=== PATIENT | female | born 1950 | race African-American/Black ===

== ENCOUNTER 2017-04-20 21:10 | Emergency (ER) | payer MEDICAID ==
[~2017-04-20] VITALS: Ht 157.5 cm; Wt 68.0 kg
[~2017-04-20 21:10] MED LIST: ANORO INH; CLON0.2T PO; FURO-152 PO; LACT10SO6 PO; ZOLP10TA6 PO
[2017-04-20 22:48] LABS: BASOPHILS % 0.7 % (0.0-2.0); EOSINOPHILS % 2.4 % (0.0-5.0); HEMATOCRIT. 37.4 % (36.0-48.0); HEMOGLOBIN. 12.4 g/dL (12.0-16.0); LYMPHOCYTES % 34.4 % (20.0-50.0); MEAN CORPUSCULAR HEMOGLOBIN 30.7 pg (28.0-32.0); MEAN CORPUSCULAR VOLUME 92.8 fL (81.0-99.0); MEAN PLATELET VOLUME 9.3 fl (7.4-10.4); MONOCYTES % 9.8 % (2.0-8.0); NEUTROPHILS % 52.7 % (40.0-76.0); PLATELET 118 x1000/uL (130-400); RED BLOOD CELL COUNT 4.03 mill/uL (4.2-5.4); RED CELL DISTRIBUTION WIDTH 15.1 % (11.6-14.6)
[2017-04-20 22:50] LABS: CHLORIDE 107 mEq/L (98-107)
[2017-04-20 22:52] LABS: INR 1.5; PROTHROMBIN TIME 15.4 sec
[2017-04-20 22:54] LABS: AMMONIA 23 uMol/L (<32)
[2017-04-20 22:57] LABS: CARBON DIOXIDE 28 mEq/L (21-32); ETHANOL BLOOD < 10 mg/dL
[2017-04-20 23:06] LABS: CREATINE KINASE 261 IU/L (26-192)
[2017-04-21 07:30] VITALS: BP 112/70
== END 2017-04-21 09:27 | disposition home or self-care (01) ==
LOC: ER 21:49
DX: T42.6X1A Poisoning by other antiepileptic and sedative-hypnotic drugs, accidental (unintentional), initial encounter (principal); G92 Toxic encephalopathy; K74.60 Unspecified cirrhosis of liver; N28.9 Disorder of kidney and ureter, unspecified; Y92.018 Other place in single-family (private) house as the place of occurrence of the external cause
CPT/HCPCS: 36415; 80053; 80307; 80329; 82140; 82550; 82962; 84443; 85025; 85610; 93005; 99285; G0482; Z7610

== ENCOUNTER 2019-08-19 15:33 | Emergency (ER) | payer MEDICARE, MEDICAID ==
[~2019-08-19] VITALS: Ht 165.1 cm; Wt 73.0 kg
[2019-08-19 17:10] LABS: BASOPHILS % 1.3 % (0.0-2.0); EOSINOPHILS % 0.6 % (0.0-5.0); HEMATOCRIT. 38.1 % (36.0-48.0); HEMOGLOBIN. 12.1 g/dL (12.0-16.0); LYMPHOCYTES % 26.5 % (20.0-50.0); MEAN CORPUSCULAR HEMOGLOBIN 25.4 pg (28.0-32.0); MEAN CORPUSCULAR VOLUME 80.1 fL (81.0-99.0); MEAN PLATELET VOLUME 9.2 fl (7.4-10.4); MONOCYTES % 7.5 % (2.0-8.0); NEUTROPHILS % 64.1 % (40.0-76.0); PLATELET 123 x1000/uL (130-400); RED BLOOD CELL COUNT 4.76 mill/uL (4.2-5.4); RED CELL DISTRIBUTION WIDTH 17.2 % (11.6-14.6)
[2019-08-19 17:14] LABS: CHLORIDE 107 mEq/L (98-107)
[2019-08-19 17:28] LABS: CLARITY URINE CLEAR (CLEAR); COLOR URINE YELLOW (YELLOW); KETONES URINE NEGATIVE (NEGATIVE); LEUKOCYTE ESTERASE URINE TRACE (NEGATIVE); NITRITE URINE NEGATIVE (NEGATIVE); OCCULT BLOOD URINE NEGATIVE (NEGATIVE); PH URINE 6.5 (4.5-8.0); PROTEIN URINE NEGATIVE (NEGATIVE); SPECIFIC GRAVITY URINE 1.033 (1.005-1.030)
[2019-08-19] MEDS: ACETAMINOPHEN 500MG TABLET PO ONE ×2 (18:19→18:20)
[2019-08-19] MEDS ORDERED: HYDROCODONE/ACETAMINOPHEN 5/325MG TABLET PO NR (18:45)
[2019-08-19] MEDS ORDERED: AMLODIPINE 5MG TABLET PO ONE (18:45)
[2019-08-19] MEDS ORDERED: CEFTRIAXONE 1 G PREMIX 50 ML IV NR (21:15)
[2019-08-19] MEDS ORDERED: FLUCONAZOLE 100MG TABLET PO ONE (21:30)
[2019-08-19] MEDS ORDERED: FLUCONAZOLE 150MG TABLET PO NR (22:00)
[2019-08-19] MEDS ORDERED: IOHEXOL-350 100 ML BOTTLE ONE (22:50)
[2019-08-19 23:00] VITALS: BP 145/65
== END 2019-08-19 23:00 | disposition home or self-care (01) ==
LOC: ER 15:55
DX: M54.89 Other dorsalgia (principal); M54.2 Cervicalgia; N39.0 Urinary tract infection, site not specified; V43.32XA Unspecified car occupant injured in collision with other type car in nontraffic accident, initial encounter; Y93.89 Activity, other specified; Y92.410 Unspecified street and highway as the place of occurrence of the external cause; E11.9 Type 2 diabetes mellitus without complications; I10 Essential (primary) hypertension
CPT/HCPCS: 36415; 71045; 71275; 80053; 81003; 83690; 83880; 84484; 85025; 85379; 93005; 96365; 99284; J0696; Q9967

== ENCOUNTER 2020-12-15 20:33 | Inpatient (IN) | payer MEDICARE, MEDICAID ==
[~2020-12-15] VITALS: Ht 157.5 cm; Wt 59.6 kg
[2020-12-15] MEDS ORDERED: ONDANSETRON HCL 4MG/2ML INJ IV STA (20:59)
[2020-12-15] MEDS ORDERED: SODIUM CHLORIDE 0.9% 1,000 ML IV ONE (21:00)
[2020-12-15] MEDS ORDERED: MORPHINE SULFATE 4 MG/ML CPJ (NOT FOR IM USE) IV ONE (21:30)
[2020-12-15] MEDS ORDERED: DEXT 5%/0.9% NACL 1,000 ML IV ONE (21:45)
[2020-12-15 23:07] LABS: BASOPHILS % 0.3 % (0.0-2.0); EOSINOPHILS % 0.2 % (0.0-5.0); HEMATOCRIT. 28.5 % (36.0-48.0); HEMOGLOBIN. 8.3 g/dL (12.0-16.0); LYMPHOCYTES % 22.5 % (20.0-50.0); MEAN CORPUSCULAR VOLUME 65.2 fL (81.0-99.0); MONOCYTES % 6.6 % (2.0-8.0); NEUTROPHILS % 70.4 % (40.0-76.0); RED BLOOD CELL COUNT 4.37 mill/uL (4.2-5.4)
[2020-12-15 23:14] LABS: CHLORIDE 104 mEq/L (98-107)
[2020-12-15 23:20] LABS: ETHANOL BLOOD < 10 mg/dL
[2020-12-15 23:21] LABS: BETA HYDROXYBUTYRATE 0.5 mMol/L (0.0-0.3)
[2020-12-15 23:28] LABS: PLATELET ESTIMATE SLIGHTLY DECREASED
[2020-12-15 23:29] LABS: MEAN PLATELET VOLUME 8.5 fl (7.4-10.4); PLATELET 116 x1000/uL (130-400)
[2020-12-15 23:30] LABS: CLARITY URINE CLOUDY (CLEAR); COLOR URINE DARK YELLOW (YELLOW); KETONES URINE 1+ (NEGATIVE); LEUKOCYTE ESTERASE URINE 3+ (NEGATIVE); NITRITE URINE POSITIVE (NEGATIVE); OCCULT BLOOD URINE NEGATIVE (NEGATIVE); PH URINE 6.5 (4.5-8.0); PROTEIN URINE 2+ (NEGATIVE); SPECIFIC GRAVITY URINE 1.019 (1.005-1.030)
[2020-12-15 23:40] LABS: PHENCYCLIDINE URINE SCREEN NEGATIVE (NEGATIVE)
[2020-12-15 23:41] LABS: *AMPHETAMINES SCREEN URINE NEGATIVE (NEGATIVE); *BARBITURATES SCREEN URINE NEGATIVE (NEGATIVE); *BENZODIAZEPINES SCREEN URINE NEGATIVE (NEGATIVE); *COCAINE SCREEN URINE PRESUMTIVE POSITIVE (NEGATIVE); CANNABINOID URINE SCREEN NEGATIVE (NEGATIVE); METHADONE URINE SCREEN NEGATIVE (NEGATIVE)
[2020-12-15 23:42] LABS: OPIATES URINE SCREEN NEGATIVE (NEGATIVE)
[2020-12-16] MEDS ORDERED: IOHEXOL-300 100 ML BOTTLE ONE (00:22)
[2020-12-16 00:44] LABS: INR 1.2; PROTHROMBIN TIME 13.1 sec (9.6-11.0)
[2020-12-16] MEDS ORDERED: KCL 20MEQ/100ML PREMIX 100 ML IV ONE (01:00)
[2020-12-16] MEDS ORDERED: CEFTRIAXONE 1 G PREMIX 50 ML IV ONE (01:00)
[2020-12-16] MEDS ORDERED: MORPHINE SULFATE 4 MG/ML CPJ (NOT FOR IM USE) IV ONE (01:00)
[2020-12-16 03:16] VITALS: BP 147/91
[2020-12-16 04:00] VITALS: BP 147/91
[2020-12-16] MEDS ORDERED: POTA8CAP20 MT (04:54)
[2020-12-16] MEDS ORDERED: METF-874 MT (04:54)
[2020-12-16] MEDS ORDERED: DILT30TA38 PO (04:54)
[2020-12-16] MEDS ORDERED: ONDANSETRON HCL 4MG/2ML INJ IV PRN (05:00)
[2020-12-16 06:48] LABS: BASOPHILS % 0.4 % (0.0-2.0); EOSINOPHILS % 0.4 % (0.0-5.0); HEMATOCRIT. 29.2 % (36.0-48.0); HEMOGLOBIN. 8.5 g/dL (12.0-16.0); LYMPHOCYTES % 22.2 % (20.0-50.0); MEAN CORPUSCULAR HEMOGLOBIN 19.4 pg (28.0-32.0); MEAN CORPUSCULAR VOLUME 66.8 fL (81.0-99.0); MONOCYTES % 7.9 % (2.0-8.0); NEUTROPHILS % 69.1 % (40.0-76.0); RED BLOOD CELL COUNT 4.36 mill/uL (4.2-5.4); RED CELL DISTRIBUTION WIDTH 21.7 % (11.6-14.6)
[2020-12-16 07:07] LABS: CHLORIDE 105 mEq/L (98-107)
[2020-12-16 08:00] VITALS: BP 97/53
[2020-12-16] MEDS ORDERED: DEXTROSE 50% WATER 50ML SYRINGE IV PRN (09:30)
[2020-12-16] MEDS ORDERED: POTASSIUM CHLORIDE INJ 40 MEQ in DEXT 5% WATER 250 ML IV SCH (11:00)
[2020-12-16] MEDS: ACETAMINOPHEN 325MG TABLET PO PRN (11:15)
[2020-12-16] MEDS: BLOOD SUGAR DIAGNOSTIC STRIP TEST SCH ×3 (11:43→20:44)
[2020-12-16 12:00] VITALS: BP 165/92
[2020-12-16] MEDS: INSULIN LISPRO 100 UNITS/ML SUBCUT SCH ×3 (12:39→20:48)
[2020-12-16] MEDS: CLONIDINE 0.2MG TABLET PO PRN (12:44)
[2020-12-16 12:48] LABS: MEAN PLATELET VOLUME 8.7 fl (7.4-10.4); PLATELET 114 x1000/uL (130-400)
[2020-12-16 15:02] LABS: FOLIC ACID (FOLATE) SERUM 19.6 ng/mL (>5.38)
[2020-12-16] MEDS: MEGESTROL ACETATE 400 MG/10 ML UDC PO SCH (15:52)
[2020-12-16] MEDS: SODIUM CHLORIDE 0.9% 1,000 ML IV SCH (15:52)
[2020-12-16 18:18] LABS: HEPATITIS B SURFACE ANTIGEN NEGATIVE
[2020-12-16 18:48] LABS: HEPATITIS A AB IGM NEGATIVE (NEGATIVE)
[2020-12-16 20:00] VITALS: BP 112/61
[2020-12-17] VITALS: BP 111/53
[2020-12-17] MEDS: ZOLPIDEM TARTRATE 5MG TABLET PO PRN ×2 (00:07→21:32)
[2020-12-17] MEDS: CEFTRIAXONE 1,000 MG in DEXTROSE 5% WATER 50 ML IV SCH (00:10)
[2020-12-17 04:00] VITALS: BP 107/58
[2020-12-17 06:47] LABS: TOTAL IRON BINDING CAPACITY 369 ug/dL (250-450)
[2020-12-17] MEDS: BLOOD SUGAR DIAGNOSTIC STRIP TEST SCH ×4 (07:28→20:35)
[2020-12-17 07:45] VITALS: BP 105/55
[2020-12-17] MEDS: INSULIN LISPRO 100 UNITS/ML SUBCUT SCH ×4 (07:50→20:35)
[2020-12-17] MEDS: SODIUM CHLORIDE 0.9% 1,000 ML IV SCH (08:10)
[2020-12-17] MEDS: MEGESTROL ACETATE 400 MG/10 ML UDC PO SCH (09:56)
[2020-12-17 12:00] VITALS: BP 107/59
[2020-12-17 15:45] VITALS: BP 113/57
[2020-12-17 20:00] VITALS: BP 161/69
[2020-12-17] MEDS: CLONIDINE 0.2MG TABLET PO PRN (21:32)
[2020-12-18] VITALS (10 sets, daily range): BP systolic 84–145; BP diastolic 42–73
[2020-12-18] MEDS: SODIUM CHLORIDE 0.9% 1,000 ML IV SCH ×2 (00:29→18:50)
[2020-12-18] MEDS: CEFTRIAXONE 1,000 MG in DEXTROSE 5% WATER 50 ML IV SCH (00:29)
[2020-12-18 06:46] LABS: BASOPHILS % 0.9 % (0.0-2.0); EOSINOPHILS % 1.1 % (0.0-5.0); HEMATOCRIT. 22.8 % (36.0-48.0); MEAN CORPUSCULAR HEMOGLOBIN 19.6 pg (28.0-32.0); MEAN CORPUSCULAR VOLUME 66.7 fL (81.0-99.0); MONOCYTES % 9.5 % (2.0-8.0); NEUTROPHILS % 44.5 % (40.0-76.0); RED BLOOD CELL COUNT 3.42 mill/uL (4.2-5.4); RED CELL DISTRIBUTION WIDTH 22.1 % (11.6-14.6)
[2020-12-18] MEDS: BLOOD SUGAR DIAGNOSTIC STRIP TEST SCH ×4 (07:20→21:00)
[2020-12-18] MEDS: INSULIN LISPRO 100 UNITS/ML SUBCUT SCH ×4 (07:50→21:00)
[2020-12-18 08:23] LABS: CHLORIDE 111 mEq/L (98-107)
[2020-12-18 08:27] LABS: HEMOGLOBIN. 6.7 g/dL (12.0-16.0)
[2020-12-18] MEDS: MEGESTROL ACETATE 400 MG/10 ML UDC PO SCH (08:39)
[2020-12-18] MEDS ORDERED: POTASSIUM CHLORIDE 20MEQ/PACKET PO SCH (09:15)
[2020-12-18 09:54] LABS: PLATELET ESTIMATE DECREASED
[2020-12-18 09:56] LABS: MEAN PLATELET VOLUME 8.8 fl (7.4-10.4); PLATELET 75 x1000/uL (130-400)
[2020-12-18] MEDS ORDERED: LIDOCAINE HCL 1% 20ML VIAL (Pyxis) INJ ONE ×2 (11:01→13:20)
[2020-12-18] MEDS: ACETAMINOPHEN 325MG TABLET PO PRN (16:26)
[2020-12-18] MEDS ORDERED: BISACODYL 5MG TABLET PO NR ×2 (16:30→20:30)
[2020-12-18] MEDS ORDERED: MORPHINE SULFATE 2 MG/ML CPJ (NOT FOR IM USE) IV PRN (16:30)
[2020-12-18] MEDS ORDERED: METOCLOPRAMIDE HCL 10MG/2ML VIAL IV NR ×2 (16:30→20:30)
[2020-12-18] MEDS ORDERED: SORBITOL 70% SOLN 30ML PO NR ×2 (17:00→21:00)
[2020-12-18] MEDS: IRON SUCROSE COMPLEX 100 MG/5 ML ML IV SCH (18:06)
[2020-12-18 20:47] LABS: HEMATOCRIT 29.5 % (36.0-48.0); HEMOGLOBIN 8.7 g/dL (12.0-16.0)
[2020-12-18] MEDS: PANTOPRAZOLE SODIUM 40 MG/VIAL IV SCH (21:32)
[2020-12-18] MEDS: LACTULOSE 20G/30ML UDC PO SCH (21:34)
[2020-12-19] VITALS: BP 130/42
[2020-12-19] MEDS ORDERED: BISACODYL 5MG TABLET PO NR ×2 (00:30→04:30)
[2020-12-19] MEDS ORDERED: METOCLOPRAMIDE HCL 10MG/2ML VIAL IV NR ×2 (00:30→04:30)
[2020-12-19] MEDS: CEFTRIAXONE 1,000 MG in DEXTROSE 5% WATER 50 ML IV SCH ×2 (00:57→23:50)
[2020-12-19] MEDS ORDERED: SORBITOL 70% SOLN 30ML PO NR ×2 (01:00→05:00)
[2020-12-19 04:00] VITALS: BP 170/47
[2020-12-19] MEDS: CLONIDINE 0.2MG TABLET PO PRN ×2 (04:50→14:57)
[2020-12-19 05:09] LABS: HIV SCREEN 4G Non Reactive (Non Reactive)
[2020-12-19 06:19] LABS: BASOPHILS % 0.5 % (0.0-2.0); EOSINOPHILS % 0.3 % (0.0-5.0); HEMATOCRIT. 34.4 % (36.0-48.0); HEMOGLOBIN. 10.1 g/dL (12.0-16.0); LYMPHOCYTES % 25.2 % (20.0-50.0); MEAN CORPUSCULAR HEMOGLOBIN 20.9 pg (28.0-32.0); MEAN CORPUSCULAR VOLUME 71.2 fL (81.0-99.0); MONOCYTES % 9.4 % (2.0-8.0); NEUTROPHILS % 64.6 % (40.0-76.0); RED BLOOD CELL COUNT 4.83 mill/uL (4.2-5.4); RED CELL DISTRIBUTION WIDTH 23.7 % (11.6-14.6)
[2020-12-19 06:26] LABS: INR 1.2; PROTHROMBIN TIME 12.4 sec (9.6-11.0)
[2020-12-19 06:46] LABS: CHLORIDE 118 mEq/L (98-107)
[2020-12-19] MEDS: BLOOD SUGAR DIAGNOSTIC STRIP TEST SCH ×4 (06:46→21:44)
[2020-12-19] MEDS: LACTULOSE 20G/30ML UDC PO SCH ×3 (06:53→21:44)
[2020-12-19 08:00] VITALS: BP 120/51
[2020-12-19] MEDS: MEGESTROL ACETATE 400 MG/10 ML UDC PO SCH (09:00)
[2020-12-19] MEDS: PANTOPRAZOLE SODIUM 40 MG/VIAL IV SCH ×2 (09:00→21:41)
[2020-12-19 09:05] LABS: MEAN PLATELET VOLUME 9.6 fl (7.4-10.4); PLATELET 115 x1000/uL (130-400)
[2020-12-19] MEDS: INSULIN LISPRO 100 UNITS/ML SUBCUT SCH ×4 (09:39→21:00)
[2020-12-19] MEDS ORDERED: LIDOCAINE HCL/PF 1% 10 MG/ML 5ML VIAL ONE (09:54)
[2020-12-19] MEDS ORDERED: PROPOFOL 200MG/20ML VIAL IV ONE ×2 (09:54→10:29)
[2020-12-19] MEDS ORDERED: MIDAZOLAM HCL 2 MG/2 ML VIAL ONE ×2 (09:54→10:17)
[2020-12-19] MEDS: SODIUM CHLORIDE 0.9% 1,000 ML IV SCH ×2 (10:10→23:46)
[2020-12-19] MEDS ORDERED: GLYCOPYRROLATE 0.2 MG/ML 2ML VIAL ONE (10:12)
[2020-12-19 16:00] VITALS: BP 133/50
[2020-12-19] MEDS: IRON SUCROSE COMPLEX 100 MG/5 ML ML IV SCH (18:34)
[2020-12-19 20:00] VITALS: BP 122/42
[2020-12-19] MEDS: ZOLPIDEM TARTRATE 5MG TABLET PO PRN (21:45)
[2020-12-20] VITALS: BP 112/51
[2020-12-20 04:00] VITALS: BP 125/60
[2020-12-20] MEDS: LACTULOSE 20G/30ML UDC PO SCH (06:00)
[2020-12-20] MEDS ORDERED: PANT40TA51 MT (07:35)
[2020-12-20] MEDS ORDERED: LEVO750T46 MT (07:35)
[2020-12-20] MEDS: INSULIN LISPRO 100 UNITS/ML SUBCUT SCH (07:45)
[2020-12-20] MEDS: BLOOD SUGAR DIAGNOSTIC STRIP TEST SCH (07:45)
[2020-12-20 08:00] VITALS: BP 167/56
[2020-12-20] MEDS: PANTOPRAZOLE SODIUM 40 MG/VIAL IV SCH (08:35)
[2020-12-20] MEDS: MEGESTROL ACETATE 400 MG/10 ML UDC PO SCH (08:35)
== END 2020-12-20 09:30 | disposition home or self-care (01) | DRG 433 ==
LOC: ER 20:33 → 7WST 22:04 → ENRESERV 23:34 → 6WST 12-16 21:56
PROVIDERS: ADMIT Internal Medicine; ATTEND Internal Medicine
PROC: 02HV33Z Insertion of Infusion Device into Superior Vena Cava, Percutaneous Approach (ICD-10-PCS; 2020-12-18)
PROC: B5181ZA Fluoroscopy of Superior Vena Cava using Low Osmolar Contrast, Guidance (ICD-10-PCS; 2020-12-18)
PROC: B548ZZA Ultrasonography of Superior Vena Cava, Guidance (ICD-10-PCS; 2020-12-18)
PROC: 30233N1 Transfusion of Nonautologous Red Blood Cells into Peripheral Vein, Percutaneous Approach (ICD-10-PCS; 2020-12-18)
PROC: 0DB78ZX Excision of Stomach, Pylorus, Via Natural or Artificial Opening Endoscopic, Diagnostic (ICD-10-PCS; principal; 2020-12-19)
PROC: 0DBK8ZX Excision of Ascending Colon, Via Natural or Artificial Opening Endoscopic, Diagnostic (ICD-10-PCS; 2020-12-19)
DX: K74.60 Unspecified cirrhosis of liver (principal); N39.0 Urinary tract infection, site not specified; I85.10 Secondary esophageal varices without bleeding; K76.6 Portal hypertension; Q43.8 Other specified congenital malformations of intestine; J45.909 Unspecified asthma, uncomplicated; D50.9 Iron deficiency anemia, unspecified; F12.90 Cannabis use, unspecified, uncomplicated; B96.20 Unspecified Escherichia coli [E. coli] as the cause of diseases classified elsewhere; E87.6 Hypokalemia; F14.10 Cocaine abuse, uncomplicated; D69.6 Thrombocytopenia, unspecified; F17.210 Nicotine dependence, cigarettes, uncomplicated; R63.4 Abnormal weight loss; K31.89 Other diseases of stomach and duodenum; K64.8 Other hemorrhoids; K29.70 Gastritis, unspecified, without bleeding; B19.20 Unspecified viral hepatitis C without hepatic coma; I10 Essential (primary) hypertension; K76.0 Fatty (change of) liver, not elsewhere classified; Z20.822 Contact with and (suspected) exposure to COVID-19; E11.9 Type 2 diabetes mellitus without complications; K29.60 Other gastritis without bleeding; K52.9 Noninfective gastroenteritis and colitis, unspecified; R11.10 Vomiting, unspecified; Z80.0 Family history of malignant neoplasm of digestive organs; Z90.710 Acquired absence of both cervix and uterus; Z90.49 Acquired absence of other specified parts of digestive tract; Z79.899 Other long term (current) drug therapy; Z68.24 Body mass index [BMI] 24.0-24.9, adult; K63.5 Polyp of colon
CPT/HCPCS: 36415; 36573; 74177; 80048; 80053; 80305; 80320; 81003; 82010; 82105; 82140; 82378; 82607; 82728; 82746; 82962; 83540; 83550; 83605; 83735; 84484; 85014; 85018; 85025; 86705; 86709; 86803; 86850; 86900; 86920; 87077; 87186; 87340; 87389; 87426; 88305; 88313; 93005; 99291; C1725; C1769; C1892; C9113; J0696; J1815; J2250; J2270; J2405; J2704; J2765; J3480; J3490; J7030; J7042; J7060; P9016; Q9967; U0003; G0480

== ENCOUNTER 2021-12-18 14:44 | Emergency (ER) | payer OTHER, MEDICAID ==
[~2021-12-18] VITALS: Ht 162.6 cm; Wt 63.0 kg
[~2021-12-18 14:44] MED LIST changes: +DILT30TA38 PO; +METF-874 MT; +PANT40TA51 MT; +POTA8CAP20 MT
[2021-12-18] MEDS ORDERED: SODIUM CHLORIDE 0.9% 1000ML BAG (SEPSIS BOLUS) IV ONE (16:30)
[2021-12-18] MEDS ORDERED: VANCOMYCIN 1G PREMIX 200 ML IV ONE (16:45)
[2021-12-18] MEDS ORDERED: PIPERACILLIN/TAZ 3.375G PREMIX 50 ML IV ONE (16:45)
[2021-12-18 17:08] LABS: BASOPHILS % 0.6 % (0.0-2.0); EOSINOPHILS % 0.6 % (0.0-5.0); HEMATOCRIT. 26.8 % (36.0-48.0); HEMOGLOBIN. 8.5 g/dL (12.0-16.0); LYMPHOCYTES % 19.1 % (20.0-50.0); MEAN CORPUSCULAR HEMOGLOBIN 22.9 pg (28.0-32.0); MEAN PLATELET VOLUME 9.3 fl (7.4-10.4); NEUTROPHILS % 70.7 % (40.0-76.0); PLATELET 194 x1000/uL (130-400); RED BLOOD CELL COUNT 3.72 mill/uL (4.2-5.4); RED CELL DISTRIBUTION WIDTH 22.8 % (11.6-14.6)
[2021-12-18 17:11] LABS: CHLORIDE 106 mEq/L (98-107)
[2021-12-18 17:18] LABS: CLARITY URINE TURBID (CLEAR); COLOR URINE ORANGE (YELLOW); KETONES URINE TRACE (NEGATIVE); LEUKOCYTE ESTERASE URINE 3+ (NEGATIVE); NITRITE URINE POSITIVE (NEGATIVE); OCCULT BLOOD URINE 1+ (NEGATIVE); PH URINE 5.5 (4.5-8.0); PROTEIN URINE 1+ (NEGATIVE); SPECIFIC GRAVITY URINE 1.028 (1.005-1.030)
[2021-12-18 17:37] LABS: PLATELET ESTIMATE NORMAL
[2021-12-18] MEDS ORDERED: MORPHINE SULFATE 4 MG/ML CPJ (NOT FOR IM USE) IV STA (17:54)
[2021-12-18] MEDS ORDERED: ONDANSETRON HCL 4MG/2ML INJ IV STA (17:54)
[2021-12-18] MEDS ORDERED: POTASSIUM CHLORIDE 20MEQ TABLET SR PO NR (18:00)
[2021-12-18] MEDS ORDERED: IOHEXOL-300 100 ML BOTTLE ONE (19:39)
[2021-12-18 23:53] VITALS: BP 138/78
== END 2021-12-19 00:14 | disposition short-term general hospital (02) ==
LOC: ER 14:44 → CANBEDREQ 12-19 02:28
DX: A41.9 Sepsis, unspecified organism (principal); N39.0 Urinary tract infection, site not specified; R65.20 Severe sepsis without septic shock; I10 Essential (primary) hypertension; N20.0 Calculus of kidney; K74.60 Unspecified cirrhosis of liver; E11.9 Type 2 diabetes mellitus without complications; Z86.73 Personal history of transient ischemic attack (TIA), and cerebral infarction without residual deficits; Z20.822 Contact with and (suspected) exposure to COVID-19
CPT/HCPCS: 36415; 71045; 74177; 80053; 81003; 83605; 84145; 84484; 85025; 87040; 87086; 87426; 93005; 96365; 96367; 96375; 99291; J2270; J2405; J2543; J3370; J7030; Q9967